=== PATIENT | male | born 1935 | race Caucasian/White ===

== ENCOUNTER 2021-11-03 19:16 | Emergency (ER) | payer BC, MEDICARE ==
[2021-11-03 20:00] LABS: BASO % 0.4 % (0.0-1.0); EOS # 0.1 10^3/uL (0.0-0.5); EOS % 1.2 % (0.0-3.0); HEMATOCRIT 39.5 % (42.0-52.0); LYMPH # 0.7 10^3/uL (1.5-5.0); LYMPH % 9.8 % (24.0-44.0); MEAN CORPUSCULAR HEMOGLOBIN 32.9 pg (27.0-33.0); MEAN CORPUSCULAR HGB CONC 32.9 g/dl (32.0-36.5); MONO # 0.6 10^3/uL (0.0-0.8); MONO % 8.3 % (2.0-8.0); NEUTROPHILS # 5.9 10^3/uL (1.5-8.5); NEUTROPHILS % 79.9 % (36.0-66.0); PLATELET COUNT, AUTOMATED 120 10^3/uL (150-450); RED BLOOD COUNT 3.95 10^6/uL (4.30-6.10); WHITE BLOOD COUNT 7.4 10^3/uL (4.0-10.0)
[2021-11-03 20:13] LABS: INR 3.05; PROTHROMBIN TIME 31.9 SECONDS (12.7-14.5)
[2021-11-03 20:16] LABS: BLOOD UREA NITROGEN 19 MG/DL (7-18); CALCIUM LEVEL 8.6 MG/DL (8.8-10.2); CARBON DIOXIDE LEVEL 26 MEQ/L (21-32); CHLORIDE LEVEL 110 MEQ/L (98-107); CREATININE FOR GFR 1.04 MG/DL (0.70-1.30); GLOMERULAR FILTRATION RATE > 60.0 (>35); GLUCOSE, FASTING 137 MG/DL (70-100); POTASSIUM SERUM 4.2 MEQ/L (3.5-5.1); SODIUM LEVEL 142 MEQ/L (136-145)
[2021-11-03 20:20] LABS: MB/CK RELATIVE INDEX 5.05 (< OR =4)
[2021-11-03] MEDS ORDERED: ISOVUE-370 76% 100ML VIAL As Ordered ONE (20:38)
[2021-11-03] MEDS ORDERED: [UNRECOGNIZED DRUG - OTHER] PO (21:09)
[2021-11-03] MEDS ORDERED: OMEP-173 PO (21:09)
[2021-11-03] MEDS ORDERED: BUSP10TA PO (21:09)
[2021-11-03] MEDS ORDERED: ATOR1TAB21 PO (21:09)
[2021-11-03] MEDS ORDERED: METO100T5 PO (21:09)
[2021-11-03] MEDS ORDERED: MACR50CA10 PO (21:09)
[2021-11-03] MEDS ORDERED: WARF-23 PO (21:09)
[2021-11-03] MEDS ORDERED: POTA10TA17 PO (21:09)
[2021-11-03] MEDS ORDERED: LISI5TAB11 PO (21:09)
[2021-11-03] MEDS ORDERED: METO1TAB33 PO (21:09)
[2021-11-03] MEDS ORDERED: HYDR-3713 PO (21:09)
[2021-11-03] MEDS ORDERED: TORS20TA2 PO (21:09)
[2021-11-03] MEDS ORDERED: ASPI81CH48 PO (21:09)
[2021-11-03 22:00] VITALS: BP 122/73
== END 2021-11-03 23:05 | disposition home or self-care (01) ==
LOC: M ED 19:16 → EDBD 19:16 → M ED 23:05
DX: R55 Syncope and collapse (principal); I51.7 Cardiomegaly; R91.8 Other nonspecific abnormal finding of lung field; R93.2 Abnormal findings on diagnostic imaging of liver and biliary tract; K80.20 Calculus of gallbladder without cholecystitis without obstruction; K57.30 Diverticulosis of large intestine without perforation or abscess without bleeding; Z86.73 Personal history of transient ischemic attack (TIA), and cerebral infarction without residual deficits; Z86.79 Personal history of other diseases of the circulatory system; I25.10 Atherosclerotic heart disease of native coronary artery without angina pectoris; Z95.1 Presence of aortocoronary bypass graft; I48.91 Unspecified atrial fibrillation; Z95.0 Presence of cardiac pacemaker; Z96.0 Presence of urogenital implants; Z79.82 Long term (current) use of aspirin; Z79.01 Long term (current) use of anticoagulants; Z79.899 Other long term (current) drug therapy; Z91.89 Other specified personal risk factors, not elsewhere classified; Z88.8 Allergy status to other drugs, medicaments and biological substances
CPT/HCPCS: 71045; 71275; 74175; 80048; 82550; 82553; 84484; 85025; 85610; 93005; 93041; 94760; 99285; Q9967

== ENCOUNTER → 2022-10-14 | Outpatient (CLI) | payer MEDICARE ==
[~2022-10-14] MED LIST: ASPI81CH48 PO; ATOR1TAB21 PO; BUSP10TA PO; HYDR-3713 PO; LISI5TAB11 PO; MACR50CA10 PO; METO100T5 PO; METO1TAB33 PO; OMEP-173 PO; POTA-150 PO; TORS20TA2 PO; WARF-23 PO; [UNRECOGNIZED DRUG - OTHER] PO
== END ==
LOC: M RAD 10:47
DX: C34.90 Malignant neoplasm of unspecified part of unspecified bronchus or lung (principal); I71.21 Aneurysm of the ascending aorta, without rupture

== ENCOUNTER 2023-11-10 14:43 | Emergency (ER) | payer MEDICARE ==
[~2023-11-10] VITALS: Ht 167.6 cm; Wt 88.1 kg
[2023-11-10 15:30] LABS: BASO % 0.4 % (0.0-1.0); EOS % 0.2 % (0.0-3.0); HEMATOCRIT 38.2 % (42.0-52.0); HEMOGLOBIN 12.6 g/dl (13.5-17.5); LYMPH # 0.7 10^3/uL (1.5-5.0); LYMPH % 6.2 % (24.0-44.0); MEAN CORPUSCULAR HEMOGLOBIN 33.2 pg (27.0-33.0); MEAN CORPUSCULAR VOLUME 100.5 fl (80.0-96.0); MONO # 0.9 10^3/uL (0.0-0.8); MONO % 8.2 % (2.0-8.0); NEUTROPHILS # 8.8 10^3/uL (1.5-8.5); NEUTROPHILS % 84.6 % (36.0-66.0); PLATELET COUNT, AUTOMATED 122 10^3/uL (150-450); WHITE BLOOD COUNT 10.4 10^3/uL (4.0-10.0)
[2023-11-10 15:42] LABS: LIPASE 22 U/L (12-53)
[2023-11-10 15:44] LABS: ALBUMIN 3.5 G/DL (3.2-5.2); ALKALINE PHOSPHATASE 136 U/L (46-116); ALT/SGPT 25 U/L (7.0-40); AST/SGOT 21 U/L (<34); BILIRUBIN,DIRECT 0.6 MG/DL (<0.4); BILIRUBIN,TOTAL 1.2 MG/DL (0.3-1.2); BLOOD UREA NITROGEN 21 MG/DL (9-23); CALCIUM LEVEL 8.2 MG/DL (8.3-10.6); CARBON DIOXIDE LEVEL 25 MMOL/L (20-31); CHLORIDE LEVEL 106 MMOL/L (98-107); CREATININE FOR GFR 0.91 MG/DL (0.70-1.30); GLOMERULAR FILTRATION RATE > 60.0 (>35); GLUCOSE, FASTING 118 MG/DL (74-106); POTASSIUM SERUM 4.3 MMOL/L (3.5-5.1); SODIUM LEVEL 137 MMOL/L (136-145); TOTAL PROTEIN 6.5 G/DL (5.7-8.2)
[2023-11-10] MEDS ORDERED: ISOVUE-370 76% 100ML VIAL As Ordered ONE (16:00)
[2023-11-10] MEDS ORDERED: PYRI1TAB5 PO (18:05)
[2023-11-10] MEDS ORDERED: CEFD1CAP9 PO (18:05)
[2023-11-10] MEDS: cefTRIAXone SOD 1 GM in D5W MINI-BAG PLUS 50 ML IV ONE (18:13)
[2023-11-10 18:45] VITALS: BP 124/61; O2SAT 91
[2023-11-10 19:08] VITALS: TEMP 99.1
[2023-11-12] MEDS ORDERED: FOSF3PAC2 PO (11:42)
== END 2023-11-10 19:11 | disposition home or self-care (01) ==
LOC: EDBD 14:43 → EEVIPCON 14:43 → M ED 14:43
DX: N39.0 Urinary tract infection, site not specified (principal); R55 Syncope and collapse; D73.89 Other diseases of spleen; I48.91 Unspecified atrial fibrillation; I25.10 Atherosclerotic heart disease of native coronary artery without angina pectoris; I50.9 Heart failure, unspecified; Z95.0 Presence of cardiac pacemaker; J44.9 Chronic obstructive pulmonary disease, unspecified; Z85.118 Personal history of other malignant neoplasm of bronchus and lung; Z79.82 Long term (current) use of aspirin; Z79.01 Long term (current) use of anticoagulants; Z79.899 Other long term (current) drug therapy; Z88.8 Allergy status to other drugs, medicaments and biological substances; Z91.89 Other specified personal risk factors, not elsewhere classified
CPT/HCPCS: 71045; 71275; 74174; 80048; 80076; 81001; 83605; 83690; 85025; 87040; 87088; 87184; 87186; 87486; 87581; 87633; 87798; 93005; 93041; 94760; 96365; 99285; J0696; Q9967